=== PATIENT | male | born 1960 | race African-American/Black ===

== ENCOUNTER 2022-07-06 12:49 | Inpatient (IN) | payer BC, OTHER ==
[2022-07-06 13:56] VITALS: BMI 20.9
[2022-07-06] MEDS ORDERED: NICOTINE POLACRILEX 2 MG GUM BUC PRN (14:22)
[2022-07-06] MEDS ORDERED: DICYCLOMINE HCL 10 MG CAPSULE PO PRN (14:22)
[2022-07-06] MEDS ORDERED: BENZOCAINE/MENTHOL (CHLORASEPTIC ) LOZENGE MM PRN (14:22)
[2022-07-06] MEDS ORDERED: LOPERAMIDE HCL 2 MG CAPSULE PO PRN (14:22)
[2022-07-06] MEDS ORDERED: ONDANSETRON *ODT* 4 MG TABLET SL PRN (14:22)
[2022-07-06] MEDS ORDERED: IBUPROFEN 400 MG TABLET (FP) PO PRN (14:22)
[2022-07-06] MEDS ORDERED: NALOXONE HCL (KLOXXADO) 8 MG SPRAY NS PRN (14:22)
[2022-07-06] MEDS ORDERED: MAG HYDROX/AL HYDROX/SIMETH 30 ML UNIT-DOSE CUP PO PRN (14:22)
[2022-07-06] MEDS ORDERED: POLYETHYLENE GLYCOL (HEALTHYLAX) 3350 17 GM PACKET PO PRN (14:22)
[2022-07-06] MEDS ORDERED: BISMUTH SUBSALICYLATE 262 MG/15 ML BTL PO PRN (14:22)
[2022-07-06] MEDS ORDERED: NICOTINE 10 MG CARTRIDGE (INHALER) IH PRN (14:22)
[2022-07-06] MEDS ORDERED: MAGNESIUM HYDROX 2400MG/30ML ORAL SUSPENSION 30 ML CUP PO PRN (14:22)
[2022-07-06] MEDS ORDERED: ACETAMINOPHEN 325 MG TABLET (FP) PO PRN ×2 (14:22)
[2022-07-06] MEDS ORDERED: IBUPROFEN 600 MG TABLET (FP) PO PRN (14:22)
[2022-07-06] MEDS ORDERED: HYDROCHLOROTHIAZIDE 25 MG TABLET (FP) PO SCH (14:30)
[2022-07-06] MEDS: PRENATAL VITAMINS W/ FOLIC ACID TABLET (FP) PO SCH (15:30)
[2022-07-06] MEDS: amLODIPine BESYLATE 10 MG TABLET (FP) PO SCH (15:30)
[2022-07-06] MEDS: LISINOPRIL 20 MG TABLET PO SCH (15:30)
[2022-07-06] MEDS: ASPIRIN 81 MG CHEWABLE TABLETS PO SCH (15:30)
[2022-07-06] MEDS ORDERED: amLODIPine BESYLATE 5 MG TABLET (FP) ONE (16:04)
[2022-07-06] MEDS ORDERED: ASPIRIN 81 MG CHEWABLE TABLETS ONE (16:05)
[2022-07-06] MEDS ORDERED: LISINOPRIL 10 MG TABLET ONE (16:05)
[2022-07-06] MEDS: diazePAM 5 MG TABLET PO SCH ×2 (17:19→22:08)
[2022-07-06 17:48] LABS: HEMATOCRIT 40.8 % (35.4-49); HEMOGLOBIN 13.5 GM/dL (11.7-16.9); MCH 33.2 pg (25.7-33.7); MCHC 33.1 g/dl (32.0-35.9); MEAN CELL VOLUME 100.3 fl (80-96); MEAN PLT VOLUME 8.2 fl (7.5-11.1); PLATELET COUNT 219 10^3/uL (134-434); RBC 4.07 M/mm3 (4.00-5.60); WHITE BLOOD COUNT 4.4 K/mm3 (4.0-10.0)
[2022-07-06 18:01] LABS: CALCIUM 9.3 mg/dL (8.5-10.1)
[2022-07-06 18:03] LABS: BLOOD UREA NITROGEN 27.3 mg/dL (7-18)
[2022-07-06 18:05] LABS: CREATININE 1.7 mg/dL (0.55-1.3)
[2022-07-06 18:09] LABS: TOT PROT 6.8 g/dl (6.4-8.2)
[2022-07-06] MEDS ORDERED: cloNIDine HCL 0.1 MG TABLET PO ONE (19:36)
[2022-07-06] MEDS: THIAMINE HCL 100 MG TABLET (FP) PO SCH (22:08)
[2022-07-06] MEDS: MELATONIN 5 MG TABLETS PO SCH (22:08)
[2022-07-07] MEDS: diazePAM 5 MG TABLET PO SCH ×4 (05:20→22:05)
[2022-07-07] MEDS: TRIAMTERENE AND HCTZ - 37.5 MG/25 MG CAPSULE PO SCH (06:02)
[2022-07-07] MEDS: amLODIPine BESYLATE 10 MG TABLET (FP) PO SCH (10:42)
[2022-07-07] MEDS: LISINOPRIL 20 MG TABLET PO SCH (10:42)
[2022-07-07] MEDS: ASPIRIN 81 MG CHEWABLE TABLETS PO SCH (10:42)
[2022-07-07] MEDS: PRENATAL VITAMINS W/ FOLIC ACID TABLET (FP) PO SCH (10:42)
[2022-07-07] MEDS ORDERED: POTASSIUM CHLORIDE ORAL LIQUID 20 MEQ/15 ML PO ONE ×2 (12:11→19:00)
[2022-07-07] MEDS: THIAMINE HCL 100 MG TABLET (FP) PO SCH (22:05)
[2022-07-07] MEDS: MELATONIN 5 MG TABLETS PO SCH (22:05)
[2022-07-08] MEDS: diazePAM 5 MG TABLET PO SCH ×3 (05:19→22:12)
[2022-07-08] MEDS: TRIAMTERENE AND HCTZ - 37.5 MG/25 MG CAPSULE PO SCH (06:01)
[2022-07-08] MEDS: amLODIPine BESYLATE 10 MG TABLET (FP) PO SCH (10:28)
[2022-07-08] MEDS: PRENATAL VITAMINS W/ FOLIC ACID TABLET (FP) PO SCH (10:28)
[2022-07-08] MEDS: LISINOPRIL 20 MG TABLET PO SCH (10:28)
[2022-07-08] MEDS: ASPIRIN 81 MG CHEWABLE TABLETS PO SCH (10:28)
[2022-07-08] MEDS ORDERED: cloNIDine HCL 0.1 MG TABLET PO ONE (12:56)
[2022-07-08] MEDS: THIAMINE HCL 100 MG TABLET (FP) PO SCH (22:11)
[2022-07-08] MEDS: MELATONIN 5 MG TABLETS PO SCH (22:11)
[2022-07-09] MEDS: METHOCARBAMOL 500 MG TABLET PO PRN ×2 (00:25→21:25)
[2022-07-09] MEDS: cloNIDine HCL 0.1 MG TABLET PO PRN ×2 (00:25→21:25)
[2022-07-09] MEDS: diazePAM 5 MG TABLET PO SCH ×2 (05:22→17:45)
[2022-07-09] MEDS: TRIAMTERENE AND HCTZ - 37.5 MG/25 MG CAPSULE PO SCH (07:05)
[2022-07-09] MEDS: amLODIPine BESYLATE 10 MG TABLET (FP) PO SCH (10:30)
[2022-07-09] MEDS: ASPIRIN 81 MG CHEWABLE TABLETS PO SCH (10:30)
[2022-07-09] MEDS: LISINOPRIL 20 MG TABLET PO SCH (10:30)
[2022-07-09] MEDS: PRENATAL VITAMINS W/ FOLIC ACID TABLET (FP) PO SCH (10:30)
[2022-07-09] MEDS: THIAMINE HCL 100 MG TABLET (FP) PO SCH (21:23)
[2022-07-09] MEDS: MELATONIN 5 MG TABLETS PO SCH (21:23)
[2022-07-10] MEDS ORDERED: diazePAM 5 MG TABLET PO ONE (06:00)
[2022-07-10] MEDS: TRIAMTERENE AND HCTZ - 37.5 MG/25 MG CAPSULE PO SCH (06:30)
[2022-07-10] MEDS: LISINOPRIL 20 MG TABLET PO SCH (09:09)
[2022-07-10] MEDS: amLODIPine BESYLATE 10 MG TABLET (FP) PO SCH (09:09)
[2022-07-10] MEDS: ASPIRIN 81 MG CHEWABLE TABLETS PO SCH (09:09)
[2022-07-10 09:14] VITALS: BP 147/95; PULSE 82; RESP 17; TEMP 98.9
[2022-07-10] MEDS: PRENATAL VITAMINS W/ FOLIC ACID TABLET (FP) PO SCH (11:12)
== END 2022-07-10 09:25 | disposition home or self-care (01) | DRG 897 ==
LOC: YASAS 12:49 → Y3N 14:59
PROVIDERS: ADMIT Allergy & Immunology; ATTEND Family Medicine
PROC: HZ2ZZZZ Detoxification Services for Substance Abuse Treatment (ICD-10-PCS; principal; 2022-07-06)
DX: F10.230 Alcohol dependence with withdrawal, uncomplicated (principal); F14.20 Cocaine dependence, uncomplicated; F17.210 Nicotine dependence, cigarettes, uncomplicated; F32.A Depression, unspecified; E87.6 Hypokalemia; I10 Essential (primary) hypertension; Z91.410 Personal history of adult physical and sexual abuse; Z28.310 Unvaccinated for COVID-19; Z28.9 Immunization not carried out for unspecified reason
CPT/HCPCS: 36415; 80053; 84132; 85027; 86780; C9803-CS; U0003; U0005

== ENCOUNTER 2022-10-20 16:31 | Inpatient (IN) | payer OTHER ==
[2022-10-20] MEDS ORDERED: BISMUTH SUBSALICYLATE 524 MG/30 ML PO PRN (19:02)
[2022-10-20] MEDS ORDERED: IBUPROFEN 400 MG TABLET (FP) PO PRN (19:02)
[2022-10-20] MEDS ORDERED: IBUPROFEN 600 MG TABLET (FP) PO PRN (19:02)
[2022-10-20] MEDS ORDERED: MAGNESIUM HYDROX 2400MG/30ML ORAL SUSPENSION 30 ML CUP PO PRN (19:02)
[2022-10-20] MEDS ORDERED: NICOTINE 10 MG CARTRIDGE (INHALER) IH PRN (19:02)
[2022-10-20] MEDS ORDERED: NALOXONE HCL (KLOXXADO) 8 MG SPRAY NS PRN (19:02)
[2022-10-20] MEDS ORDERED: BENZOCAINE/MENTHOL (CHLORASEPTIC ) LOZENGE MM PRN (19:02)
[2022-10-20] MEDS ORDERED: guaiFENesin 600 MG TABLET.ER (FP) PO PRN (19:02)
[2022-10-20] MEDS ORDERED: DICYCLOMINE HCL 10 MG CAPSULE PO PRN (19:02)
[2022-10-20] MEDS ORDERED: NALOXONE HCL 0.4 MG/ML VIAL IM PRN (19:02)
[2022-10-20] MEDS ORDERED: MAG HYDROX/AL HYDROX/SIMETH 30 ML UNIT-DOSE CUP PO PRN (19:02)
[2022-10-20] MEDS ORDERED: POLYETHYLENE GLYCOL (HEALTHYLAX) 3350 17 GM PACKET PO PRN (19:02)
[2022-10-20] MEDS ORDERED: BENZONATATE 200 MG CAPSULE PO PRN (19:02)
[2022-10-20] MEDS ORDERED: ACETAMINOPHEN 325 MG TABLET (FP) PO PRN (19:02)
[2022-10-20] MEDS ORDERED: ONDANSETRON *ODT* 4 MG TABLET SL PRN (19:02)
[2022-10-20] MEDS ORDERED: LOPERAMIDE HCL 2 MG CAPSULE PO PRN (19:02)
[2022-10-20] MEDS ORDERED: cloNIDine HCL 0.1 MG TABLET PO ONE (19:05)
[2022-10-20] MEDS ORDERED: cloNIDine HCL 0.1 MG TABLET ONE (19:21)
[2022-10-20] MEDS: METHOCARBAMOL 500 MG TABLET PO PRN (22:34)
[2022-10-20] MEDS: hydrOXYzine PAMOATE 25 MG CAPSULE (FP) PO PRN (22:36)
[2022-10-20] MEDS: MELATONIN 5 MG TABLETS PO SCH (22:36)
[2022-10-20] MEDS: THIAMINE HCL 100 MG TABLET (FP) PO SCH (22:36)
[2022-10-21] MEDS: hydrOXYzine PAMOATE 25 MG CAPSULE (FP) PO PRN (05:35)
[2022-10-21] MEDS: METHOCARBAMOL 500 MG TABLET PO PRN (05:36)
[2022-10-21 09:55] LABS: POTASSIUM 3.8 mmol/L (3.5-5.1)
[2022-10-21 10:03] LABS: ALBUMIN 3.2 g/dl (3.4-5.0); BLOOD UREA NITROGEN 23.8 mg/dL (7-18); CALCIUM 8.9 mg/dL (8.5-10.1)
[2022-10-21 10:06] LABS: CREATININE 1.4 mg/dL (0.55-1.3); HEMATOCRIT 36.2 % (35.4-49); MCH 35.3 pg (25.7-33.7); MCHC 35.9 g/dl (32.0-35.9); MEAN CELL VOLUME 98.4 fl (80-96); MEAN PLT VOLUME 8.5 fl (7.5-11.1); PLATELET COUNT 200 10^3/uL (134-434); RBC 3.68 M/mm3 (4.00-5.60); RDW 14.6 % (11.9-15.9)
[2022-10-21 10:08] LABS: BILIRUBIN,TOTAL 0.9 mg/dL (0.2-1); TOT PROT 5.9 g/dl (6.4-8.2)
[2022-10-21] MEDS: amLODIPine BESYLATE 10 MG TABLET (FP) PO SCH (10:28)
[2022-10-21] MEDS: PRENATAL VITAMINS W/ FOLIC ACID TABLET (FP) PO SCH (10:28)
[2022-10-21] MEDS: LISINOPRIL 10 MG TABLET PO SCH (10:28)
[2022-10-21] MEDS: ASPIRIN 81 MG CHEWABLE TABLETS PO SCH (10:28)
[2022-10-21] MEDS ORDERED: chlordiazePOXIDE HCL 25 MG CAPSULE PO PRN (10:57)
[2022-10-21] MEDS: chlordiazePOXIDE HCL 25 MG CAPSULE PO SCH ×3 (11:50→22:17)
[2022-10-21] MEDS ORDERED: cloNIDine HCL 0.1 MG TABLET PO ONE (14:00)
[2022-10-21] MEDS: THIAMINE HCL 100 MG TABLET (FP) PO SCH (22:17)
[2022-10-21] MEDS: MELATONIN 5 MG TABLETS PO SCH (22:17)
[2022-10-22] MEDS: chlordiazePOXIDE HCL 25 MG CAPSULE PO SCH ×4 (05:39→22:49)
[2022-10-22] MEDS: amLODIPine BESYLATE 10 MG TABLET (FP) PO SCH (10:17)
[2022-10-22] MEDS: PRENATAL VITAMINS W/ FOLIC ACID TABLET (FP) PO SCH (10:17)
[2022-10-22] MEDS: ASPIRIN 81 MG CHEWABLE TABLETS PO SCH (10:17)
[2022-10-22] MEDS: LISINOPRIL 10 MG TABLET PO SCH (10:17)
[2022-10-22] MEDS ORDERED: cloNIDine HCL 0.1 MG TABLET PO ONE ×2 (13:30→23:16)
[2022-10-22] MEDS: hydrOXYzine PAMOATE 25 MG CAPSULE (FP) PO PRN (13:36)
[2022-10-22] MEDS: THIAMINE HCL 100 MG TABLET (FP) PO SCH (22:49)
[2022-10-22] MEDS: MELATONIN 5 MG TABLETS PO SCH (22:50)
[2022-10-23] MEDS: chlordiazePOXIDE HCL 25 MG CAPSULE PO SCH ×4 (05:30→22:27)
[2022-10-23] MEDS: PRENATAL VITAMINS W/ FOLIC ACID TABLET (FP) PO SCH (10:32)
[2022-10-23] MEDS: ASPIRIN 81 MG CHEWABLE TABLETS PO SCH (10:32)
[2022-10-23] MEDS: LISINOPRIL 10 MG TABLET PO SCH (10:33)
[2022-10-23] MEDS: amLODIPine BESYLATE 10 MG TABLET (FP) PO SCH (10:34)
[2022-10-23] MEDS: hydrOXYzine PAMOATE 25 MG CAPSULE (FP) PO PRN (10:35)
[2022-10-23] MEDS ORDERED: cloNIDine HCL 0.1 MG TABLET PO ONE ×2 (12:30→14:59)
[2022-10-23] MEDS: HYDROCHLOROTHIAZIDE 25 MG TABLET (FP) PO SCH (12:56)
[2022-10-23] MEDS: THIAMINE HCL 100 MG TABLET (FP) PO SCH (22:26)
[2022-10-23] MEDS: MELATONIN 5 MG TABLETS PO SCH (22:27)
[2022-10-23] MEDS: cloNIDine HCL 0.1 MG TABLET PO SCH (22:27)
[2022-10-24] MEDS ORDERED: chlordiazePOXIDE HCL 10 MG CAPSULE PO PRN
[2022-10-24] MEDS: chlordiazePOXIDE HCL 10 MG CAPSULE PO SCH ×4 (05:24→22:22)
[2022-10-24] MEDS: PRENATAL VITAMINS W/ FOLIC ACID TABLET (FP) PO SCH (10:03)
[2022-10-24] MEDS: METHOCARBAMOL 500 MG TABLET PO PRN (10:04)
[2022-10-24] MEDS: amLODIPine BESYLATE 10 MG TABLET (FP) PO SCH (10:04)
[2022-10-24] MEDS: ASPIRIN 81 MG CHEWABLE TABLETS PO SCH (10:04)
[2022-10-24] MEDS: cloNIDine HCL 0.1 MG TABLET PO SCH ×2 (10:05→22:22)
[2022-10-24] MEDS: hydrOXYzine PAMOATE 25 MG CAPSULE (FP) PO PRN (10:05)
[2022-10-24] MEDS: LISINOPRIL 10 MG TABLET PO SCH (10:05)
[2022-10-24 11:27] LABS: BLOOD UREA NITROGEN 23.8 mg/dL (7-18)
[2022-10-24 11:29] LABS: CREATININE 1.2 mg/dL (0.55-1.3)
[2022-10-24] MEDS: HYDROCHLOROTHIAZIDE 25 MG TABLET (FP) PO SCH (12:03)
[2022-10-24] MEDS ORDERED: LISINOPRIL 10 MG TABLET PO ONE (14:00)
[2022-10-24] MEDS: MELATONIN 5 MG TABLETS PO SCH (22:22)
[2022-10-24] MEDS: THIAMINE HCL 100 MG TABLET (FP) PO SCH (22:22)
[2022-10-25] MEDS ORDERED: chlordiazePOXIDE HCL 10 MG CAPSULE PO SCH (05:00)
[2022-10-25 06:34] VITALS: BP 152/98; PULSE 71; RESP 17; TEMP 97.7
[2022-10-25] MEDS ORDERED: LISINOPRIL 20 MG TABLET PO SCH (10:00)
[2022-10-25] MEDS: ASPIRIN 81 MG CHEWABLE TABLETS PO SCH (10:54)
[2022-10-25] MEDS: PRENATAL VITAMINS W/ FOLIC ACID TABLET (FP) PO SCH (10:55)
[2022-10-25] MEDS: cloNIDine HCL 0.1 MG TABLET PO SCH (10:55)
[2022-10-25] MEDS: HYDROCHLOROTHIAZIDE 25 MG TABLET (FP) PO SCH (10:55)
[2022-10-25] MEDS: amLODIPine BESYLATE 10 MG TABLET (FP) PO SCH (10:55)
[2022-10-26] MEDS ORDERED: chlordiazePOXIDE HCL 10 MG CAPSULE PO ONE (05:00)
== END 2022-10-25 09:10 | disposition home or self-care (01) | DRG 897 ==
LOC: YASAS 16:31 → Y6N 19:17
PROVIDERS: ADMIT Allergy & Immunology; ATTEND Surgery
PROC: HZ2ZZZZ Detoxification Services for Substance Abuse Treatment (ICD-10-PCS; principal; 2022-10-20)
DX: F10.230 Alcohol dependence with withdrawal, uncomplicated (principal); F14.20 Cocaine dependence, uncomplicated; F12.20 Cannabis dependence, uncomplicated; F17.210 Nicotine dependence, cigarettes, uncomplicated; F10.282 Alcohol dependence with alcohol-induced sleep disorder; F10.24 Alcohol dependence with alcohol-induced mood disorder; I10 Essential (primary) hypertension; E78.5 Hyperlipidemia, unspecified
CPT/HCPCS: 36415; 80053; 82565; 84520; 85027; 86780; 87811; C9803-CS; U0003; U0005